=== PATIENT | female | born 1980 | race Caucasian/White ===

== ENCOUNTER 2017-01-11 03:19 | Emergency (ER) | payer MEDICAID ==
[~2017-01-11] VITALS: Ht 165.1 cm; Wt 165.6 kg
[~2017-01-11 03:19] MED LIST: MOBIC15 MG PO; ORTHO TRI-CYCL1 EACH PO; PROTONIX20 MG PO; PROVENTIL HFA6.7 GM INH; WELLBUTRIN XL150 MG PO; XANAX0.5 MG PO; ZANTAC300 MG PO
== END 2017-01-11 04:35 | disposition short-term general hospital (02) ==
LOC: ER 03:19
DX: K21.9 Gastro-esophageal reflux disease without esophagitis (principal); J45.909 Unspecified asthma, uncomplicated; F17.210 Nicotine dependence, cigarettes, uncomplicated; Z88.6 Allergy status to analgesic agent; Z79.899 Other long term (current) drug therapy; Z91.048 Other nonmedicinal substance allergy status